=== PATIENT | female | born 1935 | race Caucasian/White ===

== ENCOUNTER 2018-06-11 08:32 | Emergency (ER) | payer OTHER ==
[2018-06-11] MEDS ORDERED: NS 500 ML IV ONE (09:12)
--- NOTE | 2018-06-11 09:18 | EDPHY ---
General - History Smoking Status: Never smoked Time Seen by Provider: 06/11/18 08:58 Narrative: CLINICAL IMPRESSION: Viral URI with cough ASSESSMENT/PLAN: 82-year-old female with past medical history of hypertension, hyperlipidemia, and multiple myeloma, visiting our area from [facility], presents to the emergency department with 2 days of URI symptoms with cough and shortness of breath. Patient has no chronic underlying cardiopulmonary disease although reports a past history of pneumonia. Vital signs are stable, no tachycardia, fever, hypoxia, or respiratory distress. Patient appears nontoxic and nonseptic. EKG read and interpreted by Dr. Duran with normal sinus rhythm, no acute ST or T-wave changes. Troponin negative. Chest x-ray read and interpreted by myself as well as Radiology with no acute cardiopulmonary disease or acute pneumonia. Patient's labs appear to be at her baseline with a leukopenia of 1.8, thrombocytopenia count of 74, and mild anemia at 11 and 35. No lower extremity edema, calf asymmetry, or warmth to suggest DVT or PE. No pleuritic discomfort. Patient received IV fluids and was able to tolerate crackers, peanut butter and juice without difficulty. She was given an albuterol inhaler. Given that she will be here for another 2 weeks and has no local primary care I did give her prescription for antibiotics given her immunosuppressed state. However I do not see an indication for antibiotic therapy at this time. Patient will continue supportive care, and warning signs return to ED sooner outlined in person and discharge papers. DIFFERENTIAL DX: Differential diagnosis includes but not limited to myocardial ischemia, pulmonary embolus, chest wall pain, bronchitis, pleural inflammation, aortic aneurysm, and pulmonary infectious causes. ED PROCEDURES: See lab and/or imaging results below ED COURSE: 9:15 a.m.: Plan for this patient, EKG, chest x-ray, cardiac enzymes, lab work, and IV fluids. The patient comfortable with this plan. 10:00 a.m.: Chest x-ray with no evidence of acute cardiopulmonary abnormality or pneumonia. Cardiac enzymes negative. EKG reviewed with Dr. Duran, no acute ST or T-wave changes, normal sinus rhythm. Labs appear at patient's baseline secondary to multiple myeloma. No clinical signs of bacterial upper respiratory infection. Patient plans on being in our area for another several weeks and does not have a primary care provider. She is requesting antibiotic to hold in case symptoms get worse. I will plan to discharge her with an albuterol inhaler and spacer as well as prescription for antibiotics only to use if needed. Warning signs return to ED discussed in-person. Patient comfortable with this plan. CHIEF COMPLAINT: Cough, shortness of breath HPI: 82-year-old female with past medical history of hypertension, hyperlipidemia, and multiple myeloma presents to the emergency department with 2-3 days of cough associated with shortness of breath. Patient is visiting our area from [facility] to be with her daughter who is ill and receiving treatment for insulinoma. Patient reports she has had numerous bouts of pneumonia and wants to make sure she does not have this today. This morning she felt slightly feverish, took ibuprofen and reports this helped. She did not have a documented temperature and arrives afebrile. She has no complaints of chest pain. She reports feeling mildly short of breath. No underlying chronic respiratory disease or use of inhalers or oxygen. No reported cardiac disease. She struggles with chronic lymphedema and reports no new or worsening lower extremity edema. No history of DVT or PE. She has been in [place] since May 30 and plans on staying another week or 2. She also reports chronic diarrhea which is essentially unchanged today but she has had a few more bouts of this. She does report a history of C diff because she"is always on an antibiotic due to the multiple myeloma". She is treated at [facility] and is seen once monthly for treatment. PAST MEDICAL HISTORY: Hypertension, hyperlipidemia, multiple myeloma See nurse/triage notes for additional history if applicable Pertinent Past Surgical History: None reported Family History: Daughter lives in [place], receiving treatment for insulinoma Social History: nonsmoker, visiting from [facility] REVIEW OF SYSTEMS: All other systems negative Constitutional: Subjective fever, no chills, appetite change. Eyes: No discharge, vision change ENT: No sore throat, congestion, ear pain. Cardiovascular: No chest pain, no palpitations. Respiratory: Positive for cough and subjective shortness of breath. Gastrointestinal: No abdominal pain, no vomiting, mild, chronic diarrhea. Genitourinary: No hematuria, dysuria, flank pain, pelvic pain Musculoskeletal: No back pain, joint swelling, joint pain, myalgias. Skin: No rashes, color change. Neurological: No headache, dizziness, weakness. PHYSICAL EXAM: General Appearance: Alert, oriented, appropriate, cooperative, overweight, pleasant, very good historian NAD, well hydrated, non-toxic appearing, VSS, no hypoxia. HEENT: TMs are clear bilaterally no perforation or FB, no injection, no evidence of serous or mucopurulent otitis. Oropharynx clear is no erythema or exudates, no tonsillar hypertrophy or asymmetry. Dentition without abnormality. Hoarse voice noted Eyes: PERRLA, no acute vision change, nystagmus, swelling, discharge, pain or photosensitivity. Conjunctiva pink, no pallor or injection Neck: Supple, nontender, no lymphadenopathy, no midline pain, FROM, no meningismus. Respiratory: There are no retractions, lungs are clear to auscultation. Cardiac: Regular rate and rhythm, no murmurs or gallops. Gastrointestinal: Abdomen is soft, nontender, bowel sounds normal, no masses/ hernia, no rigidity, guarding or focal peritoneal findings. Neurological: Alert and oriented x 3, CN 2-12 grossly intact Skin: Warm, dry, no rashes, no nodules on palpation. Musculoskeletal: Extremities are symmetrical, full range of motion, no tenderness, deformity, swelling, or erythema. No obvious lower extremity edema , erythema, warmth or calf asymmetry. Patient has been wrapping the legs regularly due to chronic lymphedema Psychiatric: Patient is oriented X 3, there is no agitation. MEDICAL DECISION MAKING: Patient was seen independently. Secondary supervising physician at time of evaluation was Dr. Duran. Diagnosis: Viral URI with cough. New, requires workup Summary: See Assessment and Plan for summary of ED visit Clinical lab tests: ordered / reviewed. Independent visualization of images, tracing, or specimens: Yes. Decision to obtain medical records or history from someone other than the patient: No Review / Summarize previous medical records: Reviewed past lab records Discussed patient with another provider: Dr. Duran Patient Progress: Improved. (Ozzy Varela) Medical Decision Making: PHYSICIAN DOCUMENTATION: The patient was evaluated and managed by the Physician Oracle Analyst and myself. I have reviewed the chart and agree with the findings and plan of care as documented. In addition, I examined the patient myself. History confirmed as cough but without fever, previous history of pneumonia. Physical findings as follows: Lungs clear to auscultation bilaterally. Labs and diagnostic reviewed. More likely URI. I am the secondary supervising physician. (Bola Duran) - Diagnostics Imaging Results: Imaging Impressions Chest X-Ray 06/11/18 09:13 Impression: Stable negative chest.. - Objective Vital Signs: Initial Vital Signs Temperature (C) 36.8 C 06/11/18 08:37 Heart Rate 79 06/11/18 08:37 Respiratory Rate 18 06/11/18 08:37 Blood Pressure 119/68 06/11/18 08:37 O2 Sat (%) 92 06/11/18 08:37 O2 Delivery Mode Room Air Allergies/Adverse Reactions: No Known Allergies Allergy (Verified 06/11/18 08:35) Home Medications: Medication Instructions Recorded Aspirin 11/08/09 Bystolic 11/08/09 Probiotics 11/08/09 Revlimid 11/08/09 VITAMIN D 11/08/09 Zomeda 11/08/09 Amlodipine Besylate 06/11/18 Azithromycin 250 mg PO DAILY #6 tablet 06/11/18 FOLIC ACID 06/11/18 Gabapentin 06/11/18 Metoprolol Succinate 06/11/18 Laboratory Results: Laboratory Results 06/11/18 09:15 06/11/18 09:15 06/11/18 06/11/18 06/11/18 09:21 09:15 09:15 WBC 1.82 10^3/uL L 10^3/uL (3.80-9.50) RBC 3.78 10^6/uL L 10^6/uL (4.18-5.33) Hgb 11.8 g/dL L g/dL (12.6-16.3) Hct 35.9 % L % (38.0-47.0) MCV 95.0 fL fL (81.5-99.8) MCH 31.2 pg pg (27.9-34.1) MCHC 32.9 g/dL g/dL (32.4-36.7) RDW 15.9 % H % (11.5-15.2) Plt Count 74 10^3/uL L 10^3/uL (150-400) MPV 11.1 fL fL (8.7-11.7) Neut % (Auto) Not Reported Lymph % (Auto) Not Reported [place] % (Auto) Not Reported Eos % (Auto) Not Reported Baso % (Auto) Not Reported Nucleat RBC Rel Count Not Reported Absolute Neuts (auto) Not Reported Absolute Lymphs (auto) Not Reported Absolute Monos (auto) Not Reported Absolute Eos (auto) Not Reported Absolute Basos (auto) Not Reported Absolute Nucleated RBC Not Reported Immature Gran % Not Reported Seg Neutrophils % 50.5 % % Band Neutrophils % 3.1 % % Lymphocytes % 25.8 % % Monocytes % 18.6 % % Eosinophils % 1.0 % % Basophils % 1.0 % % Metamyelocytes % 0.0 % % Myelocytes % 0.0 % % Promyelocytes % 0.0 % % Blast Cells % 0.0 % % Immature Gran # Not Reported Absolute Seg Neuts 0.92 10^3/uL L 10^3/uL (1.70-6.50) Absolute Band Neuts 0.06 10^3/uL 10^3/uL (0.00-0.70) Absolute Lymphocytes 0.47 10^3/uL L 10^3/uL (1.00-3.00) Absolute Monocytes 0.34 10^3/uL 10^3/uL (0.30-0.80) Absolute Eosinophils 0.02 10^3/uL L 10^3/uL (0.03-0.40) Absolute Basophils 0.02 10^3/uL 10^3/uL (0.02-0.10) Absolute Metamyelocyte 0.00 10^3/mL 10^3/mL (0.00-0.00) Absolute Myelocytes 0.00 10^3/mL 10^3/mL (0.00-0.00) Absolute Promyelocytes 0.00 10^3/uL 10^3/uL (0.00-0.00) Absolute Plasma Cells 0.00 10^3/uL 10^3/uL (0.00-0.00) Nucleated RBCs 0 /100 WBC /100 WBC (0-0) Absolute Blast Cells 0.00 10^3/uL 10^3/uL (0.00-0.00) Plasma Cells % 0.0 % % Platelet Estimate DECREASED L (ADEQ) Polychromasia 1+ H Microcytic Cells 1+ H Oval Macrocytes 1+ H Elliptocytes 1+ H Sodium 135 mEq/L mEq/L (135-145) Potassium 3.5 mEq/L mEq/L (3.5-5.2) Chloride 109 mEq/L mEq/L (97-110) Carbon Dioxide 20 mEq/l L mEq/l (22-31) Anion Gap 6 mEq/L mEq/L (6-14) BUN 11 mg/dL mg/dL (7-23) Creatinine 0.7 mg/dL mg/dL (0.6-1.0) Estimated GFR > 60 Glucose 90 mg/dL mg/dL (70-100) Calcium 8.4 mg/dL L mg/dL (8.5-10.4) POC Troponin I 0.00 ng/mL ng/mL (0.00-0.08) Medications Given: Discontinued Medications Sodium Chloride (Ns) 500 mls @ 0 mls/hr IV EDNOW ONE; Wide Open PRN Reason: Protocol Stop: 06/11/18 09:13 Last Admin: 06/11/18 09:31 Dose: 500 mls Point of Care Test Results: Chemistry 06/11/18 09:21 POC Troponin I 0.00 ng/mL ng/mL (0.00-0.08) Departure - Departure Disposition: Home, Routine, Self-Care Clinical Impression: Viral URI with cough Condition: Good Instructions: Albuterol (By breathing), Upper Respiratory Infection (ED) Additional Instructions: DISCHARGE INSTRUCTIONS FROM YOUR DOCTOR Thank you for visiting our emergency department today. Please keep in mind that discharge from the emergency department does not mean that there is nothing wrong - it simply means that we have not identified an emergency condition that requires further evaluation or treatment in the hospital. You should always plan to follow up with primary care for re-evaluation of your condition in the next 2-3 days. If you have been referred to a specialist, please call as soon as possible (today or tomorrow) to schedule your follow up appointment at the appropriate time. YOUR DIAGNOSTIC EVALUATION IN THE EMERGENCY DEPARTMENT INCLUDED AN EKG, CARDIAC ENZYMES, CHEST X-RAY AND LAB WORK. RADIOLOGIST READ YOUR CHEST X-RAY, YOU HAVE NO SIGNS OF PNEUMONIA OR UNDERLYING BACTERIAL INFECTION. EKG IS REASSURING AND CARDIAC ENZYMES ARE NEGATIVE. LABS APPEAR TO BE AT BASELINE WITH NO SIGNIFICANT ABNORMALITY. PLATELET COUNT IS 74, H&H ARE 11 AND 35, WHITE COUNT IS 1.8. WE SEE NO SIGNS OF BACTERIAL INFECTION. AN ALBUTEROL INHALER WAS GIVEN TO USE EVERY 4 HR NEEDED FOR COUGH OR SHORTNESS OF BREATH. I DID GIVE YOU PRESCRIPTION FOR ANTIBIOTICS IF SYMPTOMS ARE WORSENING. PLEASE RETURN TO THE EMERGENCY DEPARTMENT IMMEDIATELY FOR WORSENING COUGH, SEVERE SHORTNESS OF BREATH OR CHEST PAIN, HIGH FEVERS, BACK PAIN, OR ANY OTHER CONCERNS. People present with illnesses and injuries in different ways, and it is always possible that we have missed something. You may always return for re-evaluation if symptoms worsen or if they are not improving or if you develop new/different symptoms. Again, thank you for choosing our emergency department. We hope that you feel better. Referrals: DOIR RODRIGUEZ [Other] - As per Instructions Prescriptions: Azithromycin 250 mg PO DAILY #6 tablet
--- NOTE | 2018-06-11 09:26 | CPEKG ---
Test Reason : OPEN Blood Pressure : / mmHG Vent. Rate : 069 BPM Atrial Rate : 069 BPM P-R Int : 170 ms QRS Dur : 086 ms QT Int : 420 ms P-R-T Axes : 017 -23 044 degrees QTc Int : 450 ms Sinus rhythm Probable left atrial enlargement Borderline left axis deviation Confirmed by Bola Duran ([id number]) on 06/11/2018 9:25:41 AM Referred By: Confirmed By:Bola Duran
[2018-06-11 09:28] LABS: PLATELET COUNT 74 10^3/uL (150-400)
[2018-06-11] MEDS ORDERED: ALBUTEROL 3 ML DEYVIAL IH ONE (10:05)
[2018-06-11] MEDS ORDERED: ALBUTEROL INH PREPACK MDI TAKEHOME ONE (10:05)
[2018-06-11 10:28] VITALS: BP 122/59
== END 2018-06-11 10:37 | disposition home or self-care (01) ==
DX: J06.9 Acute upper respiratory infection, unspecified (principal); E86.9 Volume depletion, unspecified; I10 Essential (primary) hypertension; E78.5 Hyperlipidemia, unspecified
CPT/HCPCS: 71046; 93005; 96360; 99285; J7613; 84484-ER

== ENCOUNTER 2018-06-14 08:56 | Inpatient (IN) | payer OTHER ==
[2018-06-14] MEDS ORDERED: ALBUTEROL 3 ML DEYVIAL IH ONE (09:39)
[2018-06-14] MEDS ORDERED: NS 500 ML IV ONE (09:39)
[2018-06-14 09:58] LABS: PLATELET COUNT 86 10^3/uL (150-400)
[2018-06-14] MEDS ORDERED: POTASSIUM CL 20 MEQ PKT PO ONE (11:24)
[2018-06-14] MEDS ORDERED: fentaNYL 100 MCG/2 ML INJ IVP ONE (11:45)
[2018-06-14] MEDS ORDERED: ACETAMINOPHEN 325 MG TAB PO ONE (11:45)
[2018-06-14] MEDS ORDERED: BENZONATATE 100 MG CAP PO ONE (11:45)
--- NOTE | 2018-06-14 11:45 | EDPHY ---
General - History Smoking Status: Never smoked Time Seen by Provider: 06/14/18 09:21 Narrative: CLINICAL IMPRESSION: Weakness, C diff, diarrhea, bronchitis ASSESSMENT/PLAN: 82-year-old female from a new to this provider, seen recently in this emergency department for bronchitis, returns today complaining of weakness, diarrhea, and intermittent fevers. Patient is visiting from [facility]. She has a history of multiple myeloma. She has been noncompliant with her albuterol and did not start an antibiotic. She is here visiting her daughter who is being treated for insulinoma. She appears nontoxic, nonseptic, initially afebrile but later spiked a low-grade temperature 100.4 degrees, no hypoxia or respiratory distress. Repeat chest x-ray shows no interval development of pneumonia. Labs remain reassuring although indicative of patient with chronic multiple myeloma. She continues to have leukopenia, anemia, and thrombocytopenia which are not significantly changed from labs 3 days ago. Patient is requesting stool studies given history of C diff in the past and reported chronic history of diarrhea although 2 days ago reported no diarrhea. She is C diff positive. Urine also appears infected although patient states " my urine is always infected". Given patient's age, return to emergency department an immunocompromised state with positive C diff I recommended admission which she has agreed to. Case discussed with hospitalist and patient was stabilized in the ED prior to transfer to the floor. DIFFERENTIAL DX: Differential includes but not limited to pneumonia, persistent bronchitis, infectious diarrhea, C diff, electrolyte imbalance, sepsis ED PROCEDURES: See lab and/or imaging results below ED COURSE: 11:30 a.m.: Patient reassessed by myself. States she is feeling a little better. Is requesting pain medication for her "body aches" and headache. I explained that I do not treat headaches with narcotics. She does now have a low -grade temperature of 100.3 degrees. I recommended Tylenol. Patient was requesting this through an IV which I declined. She will be given a small dose of fentanyl and Tylenol p. O.. She is requesting something for cough which I will treat with Tessalon Perles. We are awaiting her C diff. Patient is asking if she can stay in the emergency room for several more hours which I a reported is not appropriate or necessary. I did discuss an offer admission which she does not want and has refused. She feels comfortable going back to her hotel. She is asking that I talk to her Infectious Disease provider in [place] but I will await C diff results before contacting him. 12:15 p.m.: C diff still pending. Will plan to discharge patient and follow up with her this afternoon when C diff results are available. I discussed patient's case with Dr. Wagner. She is in agreement with this plan. We will insure patient knows how to use her albuterol inhaler. Prescription for Tessalon Perles provided. 12:30 p.m.: ED RN went to discuss discharge and discharge plan with the patient. She is now stating "well I can't wait in the waiting room all day I guess I will just stay". Now patient is requesting admission. 1:20 p.m.: Patient wished to wait for her C diff results. We were told this would take minutes. We did in fact receive them and they are positive. Given patient's immunocompromised state and return with weakness persistent cough as well as probable UTI I recommended admission and she has now agreed. Hospitalist patient. CHIEF COMPLAINT: Persistent cough, weakness, diarrhea HPI: 82-year-old female familiar to this provider presents to the emergency department for the 2nd time this week complaining of weakness, persistent cough , diarrhea for the last 2 days, and fever. Patient has a history of multiple myeloma treated by Oncology in [facility] where she is from. She is visiting her daughter here who is being treated in the [place] area for insulinoma. Patient reports she is staying in a local hotel in [place] and travel to the ED by taxi today. She was given albuterol inhaler during her last visit but has been taking this non compliantly. She did not fill antibiotics that were given last visit. She has been visiting her daughter. She reports a history of C diff in the past, reported to this provider 3 days ago that she has chronic intermittent diarrhea, reports he has had increased diarrhea for the last 2 days and would like to be checked for C diff. She reports chronic "whole-body pain" as well as a headache today. No reports of abdominal pain, nausea or vomiting. She also reports a history of chronic UTIs and feels that she may have a bladder infection today. PAST MEDICAL HISTORY: Please see nurse triage notes. Please see past ED notes. Multiple myeloma, hypertension, chronic pain See nurse/triage notes for additional history if applicable Pertinent Past Surgical History: See triage notes Family History: Daughter with insulinoma Social History: Visiting from [facility] REVIEW OF SYSTEMS: All other systems negative Constitutional: Positive for fever, positive for chills, appetite change. Eyes: No discharge, vision change ENT: No sore throat, congestion, ear pain. Cardiovascular: No chest pain, no palpitations. Respiratory: Positive for cough and shortness of breath. Gastrointestinal: No abdominal pain, no vomiting, positive for diarrhea. Genitourinary: No hematuria, positive for dysuria, flank pain, pelvic pain Musculoskeletal: No back pain, joint swelling, joint pain, chronic myalgias. Skin: No rashes, color change. Neurological: No headache, dizziness, positive for weakness. PHYSICAL EXAM: General Appearance: Alert, oriented, elderly appearing, overweight appropriate , cooperative, NAD, well hydrated, non-toxic appearing, VSS, no hypoxia. HEENT: TMs are clear bilaterally no perforation or FB, no injection, no evidence of serous or mucopurulent otitis. Oropharynx clear is no erythema or exudates, no tonsillar hypertrophy or asymmetry. Dentition without abnormality. Eyes: PERRLA, no acute vision change, nystagmus, swelling, discharge, pain or photosensitivity. Conjunctiva pink, no pallor or injection Neck: Supple, nontender, no lymphadenopathy, no midline pain, FROM, no meningismus. Respiratory: There are no retractions, lungs are clear to auscultation. Cardiac: Regular rate and rhythm, no murmurs or gallops. Gastrointestinal: Abdomen is soft, nontender, bowel sounds normal, no masses/ hernia, no rigidity, guarding or focal peritoneal findings. Neurological: [ Alert and oriented x 3, CN 2-12 grossly intact Skin: Warm, dry, no rashes, no nodules on palpation. Musculoskeletal: Extremities are symmetrical, full range of motion, no tenderness, deformity, swelling, or erythema. Psychiatric: Patient is oriented X 3, there is no agitation. MEDICAL DECISION MAKING: Patient was seen independently. Secondary supervising physician at time of evaluation was Dr Wagner. Diagnosis: Weakness, bronchitis, C diff diarrhea. New, requires workup Summary: See Assessment and Plan for summary of ED visit Clinical lab tests: ordered / reviewed. Independent visualization of images, tracing, or specimens: Yes. Discussed patient with another provider: Hospitalist, Dr. Wagner Patient Progress: Stable for admission. (Ozzy Varela) Medical Decision Making: The patient was evaluated and managed by the physician phys assistant. I have reviewed this chart and I agree with the findings and plan of care as documented , as indicated by my signature. I am the secondary supervising physician. ( Janiya Wagner) - Objective Vital Signs: Initial Vital Signs Temperature (C) 36.4 C 06/14/18 08:59 Heart Rate 93 06/14/18 08:59 Respiratory Rate 18 06/14/18 08:59 Blood Pressure 133/74 H 06/14/18 08:59 O2 Sat (%) 93 06/14/18 08:59 O2 Delivery Mode Room Air O2 (L/minute) 2 Allergies/Adverse Reactions: No Known Allergies Allergy (Verified 06/11/18 08:35) Home Medications: Medication Instructions Recorded Aspirin [Aspirin 81mg (*)] 81 mg PO BID 11/08/09 Cholecalciferol Vit D3 [Vitamin D3 1,000 units PO DAILY 11/08/09 (*)] Herbals/Supplements -Info Only 1 ea PO DAILY 11/08/09 Lenalidomide [Revlimid] 10 mg PO DAILY 11/08/09 Zoledronic Acid [Zometa] 4 mg IV Q90D 11/08/09 Folic Acid [Folic Acid 1 MG (*)] 1 mg PO DAILY 06/11/18 Gabapentin [Neurontin 100 MG (*)] 100 mg PO BID@09,14 06/11/18 Metoprolol Tartrate [Lopressor 25 25 mg PO BID 06/11/18 mg (*)] amLODIPine BESYLATE [Norvasc 10 mg 10 mg PO DAILY 06/11/18 (*)] ALPRAZolam [Xanax 0.25 MG (*)] 0.25 mg PO DAILY PRN 06/14/18 Acetaminophen [Tylenol 325mg (*)] 325 mg PO DAILY PRN 06/14/18 Acyclovir [Zovirax 400 mg (*)] 400 mg PO DAILY 06/14/18 Ascorbic Acid [Vitamin C 500 mg 500 mg PO DAILY 06/14/18 (*)] Benzonatate [Tessalon Pearles (RX)] 100 mg PO BID PRN #15 cap 06/14/18 Gabapentin [Neurontin 300 MG (*)] 900 mg PO HS 06/14/18 Ibuprofen [Motrin (*)] 200 mg PO DAILY PRN 06/14/18 Ranitidine HCl [Zantac] 150 mg PO DAILY 06/14/18 Simvastatin [Zocor] 20 mg PO HS 06/14/18 cycloSPORINE 0.05% [Restasis Opht 1 drop EACHEYE BID 06/14/18 Drops(*)] Laboratory Results: Laboratory Results 06/14/18 09:50 06/14/18 09:50 Microbiology Results: MICROBIOLOGY 06/14/18 10:20 Urine,Clean Catch Urine Culture - Preliminary Escherichia Coli Gram Neg Joel Lactose Fleet Administrative Assistant 06/14/18 10:20 Stool Gastrointestinal Tract Panel (PCR) - Final Clostridium Difficile Detected Medications Given: Hydrocodone Bitart/Acetaminophen (Sanderson 5/325) 1 tab PO Q6H PRN PRN Reason: Pain, Moderate Able to Take PO Stop: 06/24/18 15:59 Last Admin: 06/14/18 18:27 Dose: 1 tab Acyclovir (Acyclovir) 400 mg PO DAILY [facility] Stop: 07/15/18 08:59 Last Admin: 06/15/18 08:30 Dose: 400 mg Ascorbic Acid (Vitamin C) 500 mg PO DAILY [facility] Stop: 12/12/18 08:59 Last Admin: 06/15/18 08:30 Dose: 500 mg Aspirin (Aspirin) 81 mg PO BID [facility] Stop: 12/11/18 20:59 Last Admin: 06/15/18 08:30 Dose: 81 mg Atorvastatin Calcium (Lipitor) 10 mg PO HS [facility] Stop: 12/11/18 20:59 Last Admin: 06/14/18 20:09 Dose: 10 mg Cholecalciferol (Vitamin D) 1,000 units PO DAILY [facility] Stop: 12/12/18 08:59 Last Admin: 06/15/18 08:29 Dose: 1,000 units Cyclosporine (Restasis) 1 drop EACHEYE BID [facility] Stop: 12/11/18 20:59 Last Admin: 06/15/18 08:34 Dose: Not Given Famotidine (Pepcid) 20 mg PO DAILY [facility] Stop: 12/12/18 08:59 Last Admin: 06/15/18 08:30 Dose: 20 mg Folic Acid (Folic Acid) 1 mg PO DAILY [facility] Stop: 12/12/18 08:59 Last Admin: 06/15/18 08:29 Dose: 1 mg Gabapentin (Neurontin) 100 mg PO BID@,14 [facility] Stop: 12/12/18 08:59 Last Admin: 06/15/18 13:01 Dose: 100 mg Gabapentin (Neurontin) 600 mg PO HS [facility] Stop: 12/11/18 20:59 Last Admin: 06/14/18 20:08 Dose: 600 mg Guaifenesin/Dextromethorphan (Robitussin Dm Oral Liquid) 10 ml PO Q4HRS PRN PRN Reason: Cough, Moderate Stop: 12/11/18 15:59 Last Admin: 06/15/18 10:16 Dose: 10 ml Miscellaneous Medication (Lenalidomide [Revlimid]) 10 mg PO DAILY [facility] Stop: 12/12/18 08:59 Last Admin: 06/15/18 08:32 Dose: Not Given Vancomycin HCl (Vancocin Oral Liquid) 125 mg PO QID BISHNU PRN Reason: Protocol Stop: 07/14/18 20:59 Last Admin: 06/15/18 11:55 Dose: 125 mg Zolpidem Tartrate (Ambien) 5 mg PO HS PRN PRN Reason: Sleep/Insomnia Stop: 12/11/18 15:49 Last Admin: 06/15/18 00:16 Dose: 5 mg Discontinued Medications Acetaminophen (Tylenol) 650 mg PO EDNOW ONE Stop: 06/14/18 11:46 Last Admin: 06/14/18 12:17 Dose: 650 mg Albuterol (Proventil Neb) 3 ml IH EDNOW ONE Stop: 06/14/18 09:40 Last Admin: 06/14/18 09:48 Dose: 3 ml Benzonatate (Tessalon Pearles) 100 mg PO EDNOW ONE Stop: 06/14/18 11:46 Last Admin: 06/14/18 12:17 Dose: 100 mg Fentanyl (Sublimaze) 25 mcg IVP EDNOW ONE Stop: 06/14/18 11:46 Last Admin: 06/14/18 12:17 Dose: 25 mcg Sodium Chloride (Ns) 500 mls @ 0 mls/hr IV EDNOW ONE; Wide Open PRN Reason: Protocol Stop: 06/14/18 09:40 Last Admin: 06/14/18 09:49 Dose: 500 mls Sodium Chloride (Ns) 1,000 mls @ 100 mls/hr IV CONT BISHNU Stop: 06/15/18 01:59 Last Admin: 06/14/18 16:48 Dose: 1,000 mls Potassium Chloride (Klor Packets) 40 meq PO EDNOW ONE Stop: 06/14/18 11:25 Last Admin: 06/14/18 12:17 Dose: 40 meq Potassium Chloride (Klor-Con) 40 meq PO ONCE ONE Stop: 06/15/18 12:07 Last Admin: 06/15/18 13:01 Dose: 40 meq Departure - Departure Disposition: [facility] Acute Clinical Impression: Weakness, Bronchitis, C. difficile diarrhea Diarrhea Qualifiers: Diarrhea type: unspecified type Qualified Code(s): R19.7 - Diarrhea, unspecified Condition: Fair
[2018-06-14] MEDS ORDERED: ACETAMINOPHEN 325 MG TAB PO PRN (14:14)
[2018-06-14] MEDS ORDERED: ONDANSETRON 4 MG/2 ML VIAL IVP PRN (14:14)
[2018-06-14] MEDS ORDERED: ONDANSETRON DISINTEGRATING 4 MG TAB PO PRN (14:14)
[2018-06-14] MEDS ORDERED: ALPRAZolam 0.25 MG TAB PO PRN (15:42)
[2018-06-14] MEDS ORDERED: IBUPROFEN 200 MG TAB PO PRN (15:42)
[2018-06-14] MEDS ORDERED: HYDROCODONE/APAP 5/325 TAB PO PRN (16:00)
[2018-06-14] MEDS ORDERED: NS 1,000 ML IV SCH (16:00)
--- NOTE | 2018-06-14 16:49 | GHP ---
DATE OF ADMISSION: 06/14/2018 CHIEF COMPLAINT: Cough, diarrhea, recurrent C difficile. HISTORY OF PRESENT ILLNESS: An 82-year-old female here visiting her daughter from [place], manoj aguillon with watery stools, productive cough, fatigue, and fevers. She has been here in [place] since May 8 helping her daughter who has been hospitalized. Patient began feeling ill on the with sy mptoms including fatigue, productive cough with brown sputum, fevers, and watery diarrhea. She had 4 watery stools yesterday, three today. She has an extensive history of C difficile, had a fecal medina splant 1 year ago, and no issues. However, she was on antibiotics 2 months ago for a UTI. No chills or sweats. No falls. No chest pain. REVIEW OF SYSTEMS: I completed a 10-point review of systems and negative except as noted in HPI. PAST MEDICAL HISTORY: Multiple myeloma, hypertension, hyperlipidemia, chronic lymphedema, thrombocyt openia/leukopenia, chronic recurrent UTIs. PAST SURGICAL HISTORY: Bilateral hip replacement, right knee replacement, right shoulder surgery. FAMILY HISTORY: Daughter lives in [place]. She is ill with an insulinoma. Brother of lung can cer, heart issues, and father: History of heart transplant. SOCIAL HISTORY: She is nonsmoker. She is visiting from [place]. No alcohol. ALLERGIES: None. HOME MEDICATIONS: Motrin as needed, vitamin C, Tylenol 325 mg daily, Restasis, Zocor 20 mg q.h.s., Z antac 150 mg daily, acyclovir 400 mg daily, Xanax 0.25 mg daily, Norvasc 10, gabapentin 900 at night, gabapentin 100 mg b.i.d., folic acid 1 daily, aspirin 81 twice a day, metoprolol 25 b.i.d., herbal s upplements, Zometa q.90 days, Revlimid 10 daily, vitamin D daily, Tessalon Perles. PHYSICAL EXAMINATION: VITAL SIGNS: Temperature 37.3, blood pressure 108/65, heart rate in 70s, resp irations 20, 92% on room air. GENERAL: She is tired, mildly pale, but no acute distress. HEENT: P ERRLA. Mildly dry mucous membranes. CV: Regular rate and rhythm. LUNGS: Rhonchorous. ABDOMEN: Soft, nontender, nondistended. Positive bowel sounds. : No Haider. No suprapubic or CVA tenderne ss. MUSCULOSKELETAL: 5/5 upper and lower extremity strength. NEURO: 2 through 12 intact. PSYCH: She is alert and oriented x3. LABORATORY: WBC 3, hemoglobin 12, hematocrit 36, platelets 86. Sodium 135, potassium 3, chloride 10 6, carbon dioxide 21, creatinine 0.8, glucose 110, calcium 8.5. Troponin 0.00 from 06/11. UA: +2 le ukocyte esterase, 50-182 WBCs. Urine cultures pending. Positive C difficile. IMAGING: Chest x-ray personally reviewed by me. No evidence of opacity or effusion. ASSESSMENT AND PLAN: 1. Clostridium difficile infection: Reports greater than 3 loose stools in the last couple days. S he was on antibiotics 2 months ago. She is followed closely by Dr. Slaughter in [place] with Infectious Disease. I have placed a call. In the meantime, we will start vancomycin four times daily. 2. Cough: Negative for pneumonia but check a viral panel. 3. Multiple myeloma: Resume home medications. 4. 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 5. Hypertension: Hold antihypertensives with soft blood pressures. 6. Hyperlipidemia: Statin. 7. Chronic pain: Dose reduce gabapentin this evening since she is requesting her home Ambien to marilia id sedation. 8. Gastroesophageal reflux disease: Zantac. 9. Pyuria: She has a history of recurrent infections as well as colonization. She is asymptomatic now. We will hold off antibiotics with extensive Clostridium difficile history and await culture sussy dies. 10. Diet: Regular. 11. Deep venous thrombosis prophylaxis: Sequential compression devices. DISPOSITION: Warrants observation admission for hydration, vancomycin, further infectious evaluation . /[id number]/MODL
[2018-06-14] MEDS: GUAIFENESIN/DM 10 ML UDCUP PO PRN (18:13)
[2018-06-14] MEDS: GABAPENTIN 300 MG CAP PO SCH (20:08)
[2018-06-14] MEDS: VANCOMYCIN 125 MG/2.5 ML UDL PO SCH (20:08)
[2018-06-14] MEDS: ATORVASTATIN CALCIUM 10 MG TAB PO SCH (20:09)
[2018-06-14] MEDS: ASPIRIN 81 MG CHEWABLE TAB PO SCH (20:09)
[2018-06-14] MEDS ORDERED: GABAPENTIN 300 MG CAP PO SCH ×2 (21:00)
[2018-06-14] MEDS ORDERED: METOPROLOL TARTRATE 25 MG TAB PO SCH (21:00)
[2018-06-14] MEDS: cycloSPORINE 0.05% 30 DROPERETTE/BOX EACHEYE SCH (21:53)
[2018-06-15] MEDS: ZOLPIDEM TARTRATE 5 MG TAB PO PRN ×2 (00:16→23:04)
[2018-06-15] MEDS: VANCOMYCIN 125 MG/2.5 ML UDL PO SCH ×4 (06:32→20:52)
--- NOTE | 2018-06-15 08:04 | HOSPPROG ---
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 Recent abx for UTI. Vancomycin pulsed taper for weeks. FU with her ID doc in [place] #Parainfluenza URI: supportive care with IVFs, cough suppressant #MM: home meds #Hypokalemia: repleted #HTN: resume BP meds #Chemo-induced thrombocytopenia/anemia/leukopenia #Chronic pain: stable #HLD: statin #Pyuria: culture pending. Since no symptoms, will not treat with extensive C diff hx #DVT ppx: SCDs #Disp: inpatient admission for PT, electrolyte repletion. Can likely DC tomorrow Subjective: persistent cough, weak. Stools less watery Objective: Vital Signs Temp Pulse Resp BP Pulse Ox 36.9 C 75 16 130/60 H 92 06/15/18 03:40 06/15/18 03:40 06/15/18 03:40 06/15/18 03:40 06/15/18 03:40 Microbiology 06/14/18 16:55 Respiratory Panel (PCR) - Final Nasal, Sinus - Anaerobic Tube/Swab Parainfluenza Virus Type 2 06/14/18 06/15/18 06/16/18 05:59 05:59 05:59 Intake Total 500 Balance 500 - Time Spent With Patient Time Spent with Patient: greater than 35 minutes Time Spent with Patient: Greater than 35 minutes spent on this patients care, greater than 50% of time spent counseling, educating, and coordinating care regarding the above mentioned plan. - Physical Exam Constitutional: no apparent distress, other (fatigued) Eyes: PERRL Ears, Nose, Mouth, Throat: moist mucous membranes Cardiovascular: regular rate and rhythym Respiratory: rhonchi Gastrointestinal: normoactive bowel sounds, soft, non-tender abdomen Genitourinary: no bladder fullness Skin: warm Musculoskeletal: full muscle strength Neurologic: AAOx3 Psychiatric: interacting appropriately ICD10 Worksheet Patient Problems: Problems Problem Status Onset Bronchitis Acute C. difficile diarrhea Acute Diarrhea Acute Weakness Acute
[2018-06-15] MEDS: FOLIC ACID 1 MG TAB PO SCH (08:29)
[2018-06-15] MEDS: CHOLECALCIFEROL VIT D3 1,000 UNITS TAB PO SCH (08:29)
[2018-06-15] MEDS: FAMOTIDINE 20 MG TAB PO SCH (08:30)
[2018-06-15] MEDS: ASCORBIC ACID 500 MG TAB PO SCH (08:30)
[2018-06-15] MEDS: ASPIRIN 81 MG CHEWABLE TAB PO SCH ×2 (08:30→20:52)
[2018-06-15] MEDS: ACYCLOVIR 400 MG TAB PO SCH (08:30)
[2018-06-15] MEDS: GABAPENTIN 100 MG CAP PO SCH ×2 (08:31→13:01)
[2018-06-15] MEDS: Lenalidomide [Revlimid] 10 MG PO SCH (08:32)
[2018-06-15] MEDS: cycloSPORINE 0.05% 30 DROPERETTE/BOX EACHEYE SCH ×2 (08:34→20:53)
[2018-06-15] MEDS ORDERED: ENOXAPARIN 40 MG/0.4 ML SYR SC SCH (09:00)
[2018-06-15] MEDS ORDERED: Herbals/Supplements -Info Only PO SCH (09:00)
--- NOTE | 2018-06-15 09:51 | PDMN ---
Medical Necessity Medical necessity: Pt meets inpt criteria per MD order and Systemic or Infectious condition GRG. 82 y/o admitted w/C-Diff, cough, weakness, and hypokalemia (K 3.0), recently on ABX's for UTI, high risk co-morbidity multiple myeloma and chemo-induced thrombocytopenia/anemia/leukopenia, anticipate>2MN for management of above.
[2018-06-15] MEDS: GUAIFENESIN/DM 10 ML UDCUP PO PRN (10:16)
--- NOTE | 2018-06-15 12:04 | ASMTCMCOM ---
CM Note CM Note Notes: Pt admitted to hospital for diarrhea. She lives in [place] and is visiting her daughter here in [place]. She has a hx of Cdiff, no therapies ordered, anticipate she will dc to her dtr's home when medically stable. CM available for any changes. DC Plan: Independent Date Signed: 06/15/2018 12:04 PM Electronically Signed By:Monica Coates RN
[2018-06-15] MEDS ORDERED: POTASSIUM CL 20 MEQ TAB PO ONE (12:06)
[2018-06-15] MEDS: ATORVASTATIN CALCIUM 10 MG TAB PO SCH (20:52)
[2018-06-15] MEDS: GABAPENTIN 300 MG CAP PO SCH (20:52)
[2018-06-15] MEDS: METOPROLOL TARTRATE 25 MG TAB PO SCH (23:04)
[2018-06-16] MEDS: VANCOMYCIN 125 MG/2.5 ML UDL PO SCH ×2 (05:28→11:27)
[2018-06-16 08:08] VITALS: BP 127/90
[2018-06-16] MEDS: ACYCLOVIR 400 MG TAB PO SCH (08:09)
[2018-06-16] MEDS: METOPROLOL TARTRATE 25 MG TAB PO SCH (08:09)
[2018-06-16] MEDS: GABAPENTIN 100 MG CAP PO SCH (08:09)
[2018-06-16] MEDS: CHOLECALCIFEROL VIT D3 1,000 UNITS TAB PO SCH (08:09)
[2018-06-16] MEDS: FOLIC ACID 1 MG TAB PO SCH (08:09)
[2018-06-16] MEDS: ASPIRIN 81 MG CHEWABLE TAB PO SCH (08:09)
[2018-06-16] MEDS: FAMOTIDINE 20 MG TAB PO SCH (08:09)
[2018-06-16] MEDS: ASCORBIC ACID 500 MG TAB PO SCH (08:09)
[2018-06-16] MEDS: Lenalidomide [Revlimid] 10 MG PO SCH (08:20)
[2018-06-16] MEDS: cycloSPORINE 0.05% 30 DROPERETTE/BOX EACHEYE SCH (08:20)
[2018-06-16] MEDS: GUAIFENESIN/DM 10 ML UDCUP PO PRN (09:51)
--- NOTE | 2018-06-16 10:37 | GDS ---
DISCHARGE DIAGNOSES: 1. Recurrent C diff colitis. 2. Parainfluenza URI. 3. Multiple myeloma. 4. Hypokalemia. 5. Hypertension. 6. Hyperlipidemia. 7. Chemo induced thrombocytopenia/anemia/leukopenia, chronic. 8. Chronic pain. 9. Pyuria. HISTORY OF PRESENT ILLNESS: An 82-year-old female with multiple myeloma, recurrent C diff infection, who is visiting her daughter from [place], presented with watery stools, productive cough, fevers and chills. She has been in [place] since May 30, helping her daughter who has been hospitalized. She began feeling ill on the with fatigue, productive cough , brown sputum, and watery diarrhea. She had 4 watery stools a day prior to admission. 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 She was treated with antibiotics 2 months ago for a UTI. HOSPITAL COURSE BY PROBLEM: 1. Recurrent C difficile infection: She will be treated with a pulse taper. Vancomycin 125 mg four times daily for 2 weeks, then twice daily for 1 week, then daily for 1 week and then every 2-3 days for several weeks per her Infectious Disease; his name is Dr. Slaughter. I discussed the case with him and he agrees with plan. 2. Parainfluenza URI: Supportive care with antitussives. Drink plenty of fluids. 3. Multiple myeloma: followed by Dr. Morton, at [facility]. 4. Hyperlipidemia: Statin. 5. Hypertension: Resume home medications. 6. Hypokalemia: decreased p.o. intake: This was repleted. 7. Chronic pain: Gabapentin. 8. Chronic thrombocytopenia/anemia/leukopenia, chemo-induced, stable. 9. Pyuria: recurrent E coli infections. Will not treat with antibiotics since asymptomatic and extensive C diff infection history. DISP: stable for discharge FOLLOWUP: 1. Her oncologist. 2. Infectious Disease. NEW MEDICATIONS: Tessalon Perles, vancomycin. PHYSICAL EXAM: VITAL SIGNS: Today 36.8, blood pressure 127/90, heart rate in the 80s, respirations 16, 94% on room air. GENERAL: She appears brighter, more color. Moist mucous membranes. CV: Regular rate and rhythm. LUNGS: A few rhonchi. ABDOMEN: Soft, nontender, nondistended. Positive bowel sounds. : No Haider. MUSCULOSKELETAL: 5/5 upper and lower extremity strength. NEURO : 2 through 12 intact. PSYCH: Alert and oriented x3. Time spent on discharge greater than 30 minutes coordinating discharge, explaining medications and followup. Copy requested to: Marj Morton MD, PhD /[id number]/MODL MTDD
== END 2018-06-16 13:37 | disposition home or self-care (01) | DRG 372 ==
LOC: OBSVTOIN 14:16 → F3E 14:46
PROVIDERS: ADMIT Nurse Practitioner Family; ATTEND Nurse Practitioner Family
DX: A04.71 Enterocolitis due to Clostridium difficile, recurrent (principal); C90.00 Multiple myeloma not having achieved remission; N39.0 Urinary tract infection, site not specified; J06.9 Acute upper respiratory infection, unspecified; E87.6 Hypokalemia; I10 Essential (primary) hypertension; E78.5 Hyperlipidemia, unspecified; D69.59 Other secondary thrombocytopenia; D64.81 Anemia due to antineoplastic chemotherapy; K21.9 Gastro-esophageal reflux disease without esophagitis; G89.29 Other chronic pain; Z96.643 Presence of artificial hip joint, bilateral; Z96.651 Presence of right artificial knee joint
CPT/HCPCS: 96374; J3010; J7613